=== PATIENT | female | born 1950 | race Two or more races ===

== ENCOUNTER → 2017-05-13 | Outpatient (CLI) | payer MEDICARE, BC ==
--- NOTE | 2017-05-16 09:15 | BD ---
EXAMINATION TYPE: MG DEXA axial skeleton. DATE OF EXAM: 05/13/2017 COMPARISON: NONE CLINICAL HISTORY: 66 YR OLD FEMALE....ICD-10 CODE: Z13.820 OSTEOPOROSIS SCREENING Height: 63.5 Weight: 150 FRAX RISK QUESTIONS: Alcohol (3 or more units per day): NO Family History (Parent hip fracture): YES Glucocorticoids (More than 3mos): NO (Ex: prednisone, prednisolone, methylprednisolone, dexamethasone, and hydrocortisone). History of Fracture in Adulthood: AT AGE 46 Secondary Osteoporosis: NO 1. Type 1 Diabetes: NO 2. Hyperthyroidism: NO 3. Menopause before 45: NO 4. Malnutrition: NO 5. Chronic liver disease: NO Rheumatoid Arthritis: NO Current Tobacco Use: YES 1/2 PAC DAILY RISK FACTORS HISTORY OF: LT FIBULA, AT AGE 46 YRS OLD Family History of Osteoporosis: MOTHER, SISTER, SISTER BROKE HER HIP Active: NO, NOT AT THIS TIME Diet low in dairy products/other sources of calcium: NO Postmenopausal woman: YES AT 54 YRS Lost more than 2 inches in height since high school: YES Hyperparathyroidism: NO Adrenal Insufficiency: NO MEDICATIONS: Prednisone or other steroids: PREDNISONE FOR LUNGS LAST MONTH Additional History: BP MEDS, VIT D, MULTIVITAMIN, FISH OIL EXAM MEASUREMENTS: Bone mineral densitometry was performed using the [employer] System. Bone mineral density as measured about the Lumbar spine is: ----- L1-L4(G/cm2): 1.039 T Score Values are as follows: ----- L1: -1.4 ----- L2: -2.0 ----- L3: -1.4 ----- L4: -0.5 ----- L1-L4: -1.2 Bone mineral density NEW TO [facility] Bone mineral density about the R hip (g/cm2): 0.710 Bone mineral density about the L hip (g/cm2): 0.651 T Score values are as follows: -----R Neck: -2.7 -----L Neck: -2.8 -----R Total: -2.4 -----L Total: -2.8 Bone mineral density has: NEW TO [facility] FRAX%S: THERE IS A 27.4% CHANCE OF A MAJOR OSTEOPOROTIC FX AND A 11.2% FOR HIP FX...PROBABILITY OF FX IN 10 YRS IMPRESSION: Osteoporosis (T Score less than -2.5) with respect to the bilateral hips. There is increased fracture risk and therapy is usually indicated based on age. Re-Screen 1-2 years. NOTE: T-SCORE=SD OF THE YOUNG ADULT MEAN.
--- NOTE | 2017-05-16 12:47 | MM ---
Reason for exam: screening (asymptomatic). History: Patient is postmenopausal and is nulliparous. Physical Findings: A clinical breast exam by your physician is recommended on an annual basis and results should be correlated with mammographic findings. MG 3D Screening Mammo W/Cad Bilateral CC and MLO view(s) were taken. No prior studies available for comparison. The breast tissue is heterogeneously dense. This may lower the sensitivity of mammography. There is no discrete abnormality. ASSESSMENT: Negative, BI-RAD 1 RECOMMENDATION: Routine screening mammogram of both breasts in 1 year.
== END | disposition home or self-care (01) ==
LOC: RADMAMWWP 13:19
PROVIDERS: ATTEND Family Medicine
DX: Z12.31 Encounter for screening mammogram for malignant neoplasm of breast (principal); M81.0 Age-related osteoporosis without current pathological fracture
CPT/HCPCS: 77063; 77067; 77080

== ENCOUNTER → 2017-06-16 | Outpatient (CLI) | payer MEDICARE, BC | END | disposition home or self-care (01) | LOC: LABPAT 17:23 | PROVIDERS: ATTEND Orthopaedic Surgery | DX: Z01.812 Encounter for preprocedural laboratory examination (principal) | CPT/HCPCS: 87070 ==

== ENCOUNTER → 2017-06-29 | Outpatient (CLI) | payer MEDICARE, BC ==
[2017-06-29 11:46] LABS: Basophils % (A) 0 %; Eosinophils # (A) 0.3 k/uL (0-0.7); Eosinophils % (A) 4 %; HCT 43.1 % (34.0-46.0); HGB 14.4 gm/dL (11.4-16.0); Lymphocytes # (A) 2.8 k/uL (1.0-4.8); Lymphocytes % (A) 37 %; MCH 32.3 pg (25.0-35.0); MCHC 33.5 g/dL (31.0-37.0); MCV 96.5 fL (80.0-100.0); Mean Platelet Volume 6.6; Monocytes # (A) 0.3 k/uL (0-1.0); Monocytes % (A) 4 %; Neutrophils % (A) 53 %; Platelet Count 294 k/uL (150-450); RBC 4.47 m/uL (3.80-5.40); RDW 12.7 % (11.5-15.5); WBC 7.5 k/uL (3.8-10.6)
[2017-06-29 11:53] LABS: Partial Thromboplastin Time 24.3 sec (22.0-30.0)
[2017-06-29 12:00] LABS: Albumin 4.1 g/dL (3.5-5.0); Calcium 9.5 mg/dL (8.4-10.2); Potassium 4.8 mmol/L (3.5-5.1); Total Bilirubin 0.7 mg/dL (0.2-1.3); Total Protein 6.5 g/dL (6.3-8.2)
== END | disposition home or self-care (01) ==
LOC: LABWHC1 10:55
PROVIDERS: ATTEND Physician Assistant Medical
DX: Z01.812 Encounter for preprocedural laboratory examination (principal); E78.2 Mixed hyperlipidemia; I10 Essential (primary) hypertension; M25.562 Pain in left knee; Z79.01 Long term (current) use of anticoagulants
CPT/HCPCS: 36415; 80053; 85025; 85610; 85730

== ENCOUNTER 2017-07-18 12:46 | Inpatient (IN) | payer MEDICARE, BC ==
[2017-07-06 15:57] VITALS: BMI 24.7
--- NOTE | 2017-07-17 13:38 | HP ---
HISTORY AND PHYSICAL Keely Kelly is a 67-year-old patient seen with symptomatic left knee osteoarthritis. Treatment options were discussed with her. She elected to proceed with left total knee arthroplasty. Consent regarding the procedure was obtained. Medical clearance was provided by Jyoti Butcher. PAST MEDICAL HISTORY: Hyperlipidemia, hypertension. PAST SURGICAL HISTORY: Noncontributory. MEDICATIONS: Losartan. ALLERGIES: FOSAMAX. SOCIAL HISTORY: Patient smokes half pack cigarettes daily. PHYSICAL EXAMINATION: Evaluation of the left knee range of motion is negative 4/5 to 95 degrees. There is a moderate effusion present. Tenderness medial joint line. Positive medial Raymond's. There is crepitus along the medial and patellofemoral compartments. Range of motion. Pain with patellofemoral compression. Ligaments stable. Hip rotation without pain. Distal neurovascular exam intact. RADIOGRAPHS: Left knee radiographs reveal severe medial moderate patellofemoral compartment osteoarthritis. IMPRESSION: 1. Left knee osteoarthritis. 2. Hypertension. 3. Tobacco use. PLAN: Left total knee arthroplasty. Surgery scheduled for 07/18/2017. MMODL / IJN: [id number] /
[~2017-07-18 12:46] MED LIST: ACETAMINOPHEN TAB 500 MG TAB PO ONE; DEXAMETHASONE SOD PHOSPHATE 10 MG/ML 1 ML VIAL IV ONE; LIDOCAINE 1% 20 ML VIAL (10MG/ML) FOR IV START INTRADERMA PRN; MELOXICAM 7.5 MG TAB PO ONE; MIDAZOLAM 2 MG/2 ML VIAL IV PRN; MORPHINE SULFATE 4 MG/ML SYRINGE IV PRN; ONDANSETRON 4 MG/2 ML VIAL IVP ONE; TRANEXAMIC ACID 1,000 MG in SODIUM CHLORIDE 0.9% 50 ML IVPB ONE; ceFAZolin IN SWFI 2 GM/20 ML SYRINGE IVP ONE
[2017-07-18] MEDS: LACTATED RINGERS 1,000 ML IV SCH ×2 (14:13→21:44)
[2017-07-18] MEDS ORDERED: LIDOCAINE 1% INJ 10MG/ML (20 ML MDV) ONE (16:33)
[2017-07-18] MEDS ORDERED: fentaNYL (PF) 50 MCG/ML 2 ML AMP ONE (16:33)
[2017-07-18] MEDS ORDERED: MIDAZOLAM 2 MG/2 ML VIAL ONE (16:33)
[2017-07-18] MEDS ORDERED: PROPOFOL 10 MG/ML 20 ML VIAL IV ONE (16:33)
[2017-07-18] MEDS ORDERED: ceFAZolin 3,000 MG in SODIUM CHLORIDE 0.9% IRRIGATIO 3,000 ML IRRIGATION ONE (17:02)
[2017-07-18] MEDS: ROPIVACAINE 246.25 MG, EPINEPHrine 0.5 MG, KETOROLAC 30 MG, cloNIDine HCL/PF 80 MCG, WA... MISCELLANE ONE ×10 (17:06→17:59)
[2017-07-18] MEDS ORDERED: ROPIVACAINE 1,100 MG, SODIUM CHLORIDE 0.9% 330 ML MISCELLANE PRN ×2 (18:05)
--- NOTE | 2017-07-18 18:07 | P.ONQ ---
Anesthesiology Proc Note - PNB - Peripheral Nerve Block Performed Left Adductor Canal Infusion Time Out Performed: Yes Procedure Start Time: 14:59 Procedure Stop Time: 15:10 Indication: Acute Post-Operative Pain, Requested by physician Sedation Type: Sedate with meaningful contact maintained Preparation: Sterile Dressing Position: Supine Catheter: Indwelling Needle Types: On-Q Needle Size: 100mm (4") Needle Gauge: 21 Technique: Ultrasound Injectate: 0.5% Ropivacaine (see comment for volume) (ropi .5% 20cc) Blood Aspirated: No Pain Paresthesia on Injection Noted: No Resistance on Injection: Normal Events: Uneventful and Well Tolerated
[2017-07-18] MEDS ORDERED: hydrOXYzine PAMOATE 25 MG CAP PO PRN (18:42)
[2017-07-18] MEDS ORDERED: ONDANSETRON 4 MG/2 ML VIAL IVP PRN (18:42)
[2017-07-18] MEDS ORDERED: NALOXONE 0.4 MG/ML 1 ML VIAL IV PRN (18:42)
[2017-07-18] MEDS ORDERED: HYDROcodone/APAP 7.5-325MG 1 EACH TAB PO PRN ×2 (18:42)
[2017-07-18] MEDS ORDERED: HYDROmorphone 0.5 MG/0.5 ML SYRINGE IVP PRN ×3 (18:42)
--- NOTE | 2017-07-18 18:42 | P.OP ---
Date of Procedure: 07/18/17 Preoperative Diagnosis: Left knee osteoarthritis Postoperative Diagnosis: Left knee osteoarthritis Procedure(s) Performed: Left total knee arthroplasty Implants: 1. Microport evolution MP CS/CR size 4 left cemented femoral component 2. Microport evolution MP size 4 left cemented keeled tibial base 3. Microport evolution MP CS size 4 left 10 mm polyethylene tibial insert 4. Microport advance all polyethylene cemented patella 35 mm Anesthesia: regional (Adductor canal catheter), local, spinal Surgeon: Quentin Olea Garbage Collector Supervisor #1: Juan Manuel Coello Estimated Blood Loss (ml): 50 Pathology: none sent (Bone) Condition: stable Disposition: PACU Indications for Procedure: 67-year-old patient seen with symptomatic left knee osteoarthritis. After having treatment options discussed, she elected to proceed with total knee arthroplasty. Operative Findings: See description of procedure Description of Procedure: Patient was taken to the operative suite after having and adductor canal catheter placed by the department of anesthesia. Patient underwent a spinal anesthetic by the department of anesthesia. Patient was given preoperative IV intake antibiotics and TXA. A well-padded tourniquet was placed about the left lower extremity. The lower extremity was then prepped and draped in the normal sterile orthopedic fashion. The extremity was elevated, a tourniquet was insufflated to 300. A standard anterior incision was made sharply through skin. Dissection was taken down through the subcutaneous soft tissues down to the extensor mechanism. A medial arthrotomy was performed, patella was everted and knee was flexed. There was advanced osteoarthritis noted. A proximal tibial cutting guide was positioned. Proximal tibial cut was made. A distal intramedullary femoral cutting guide was positioned, distal femoral cut made. We placed the appropriate sizing guide and selected the appropriate size. A distal 4-in-1 femoral cutting block was positioned, distal femoral cuts were made. We now placed a trial femoral component into position, along with an appropriate size tibial tray and insert. We now took the knee through range of motion and had full extension good flexion and good overall soft tissue balance noted. The patella was everted and a flush cut made with patellar quad tendon. We templated the patella, appropriate drill holes were made. An appropriate trial patella was positioned, knee was taken through full range of motion with the patella tracking very nicely. The trial patella was removed. Drill holes were made through the femoral component. All trial components were removed after marking off the appropriate rotation of the tibia. Retractors were now positioned along the proximal tibia. An appropriate keel punch was made with the appropriate size tibial guide. At this point appropriate size implants were chosen and opened. The joint was irrigated copiously with pulse lavage mechanical irrigation. The posterior capsule was infiltrated with local analgesic. We mixed antibiotic methylmethacrylate. Once the methyl methacrylate was ready, the tibial component was cemented into place removing any excess methylmethacrylate. The femoral component was cemented into place removing the removing any excess methylmethacrylate. We then inserted the appropriate size polyethylene tibial insert. We made sure that it was locked into position. We took the knee into full extension, and then back in a flexion making sure we had removed any excess methylmethacrylate. The patellar component was then cemented down and secured with clamp. Excess methylmethacrylate removed. We kept the knee in full extension, patellar clamp in position until methylmethacrylate had hardened. Once it had hardened the patellar clamp was removed. The knee was taken through full range of motion. The patella tracked nicely. There was good soft tissue balancing. The tourniquet was now released. Additional hemostasis was achieved via electrocautery. A second gram of TXA was given. The superficial soft tissues were infiltrated with local analgesic. The wound was irrigated with pulse lavage mechanical irrigation. The extensor mechanism was repaired with Vicryl. We checked the repair with range of motion and it was stable. The subcutaneous soft tissues were repaired with Vicryl in layers. The skin was approximated with pernio/Dermabond. Sterile dressings were applied followed by loose web roll and Arturo bandage. The patient was transferred to a bed, and taken to recovery in stable and satisfactory condition. David RAMÍREZ assisted with the procedure.
--- NOTE | 2017-07-18 19:12 | XR ---
Left knee 2 views. History postop. Comparison none. FINDINGS: There is a left total knee prosthesis. Components are in anatomic position. IMPRESSION: No complicating process seen.
[2017-07-18] MEDS ORDERED: SENNOSIDES-DOCUSATE SODIUM 1 EACH TAB PO SCH (21:00)
[2017-07-18] MEDS: traMADol 50 MG TAB PO SCH (22:12)
[2017-07-18] MEDS: ceFAZolin IN SWFI 2 GM/20 ML SYRINGE IVP SCH (23:25)
[2017-07-19 02:11] VITALS: RESP 18
--- NOTE | 2017-07-19 07:22 | P.PN ---
Progress Note - Text 07/19 657am 67-year-old female status post left knee replacement by Dr. Quentin coello. Patient has On-Q pump for postop pain control with the solution running at 8 mL an hour. She has a VAS of 0. Plan to continue On-Q pump infusion
--- NOTE | 2017-07-19 07:43 | CONS ---
CONSULTATION REASON FOR CONSULTATION: Advice regarding hypertension and other multiple medical issues requested by Dr. Olea. HISTORY OF PRESENT ILLNESS: This 67-year-old woman with a past medical history of hypertension, history of DJD, underwent left total knee arthroplasty by Dr. Olea. There is no history of fever, rigors. No history of headache, loss of consciousness or seizures. The patient is taking losartan for hypertension at home. PAST MEDICAL HISTORY: Hypertension, DJD, history of vitamin D deficiency, hyperlipidemia. MEDICATIONS: Medications prior to admission include: 1. Otley-3 fatty acids. 2. Aleve 220 mg p.o. b.i.d. 3. Multivitamins 1 p.o. daily. 4. Cozaar 25 mg daily. 5. Vitamin D3 1000 daily. 6. Vitamin C 500 mg p.o. daily. ALLERGIES: Allergies are BEE POLLEN, POISON PRICE and FOSAMAX. FAMILY HISTORY: No history of heart disease or strokes in the family. SOCIAL HISTORY: History of smoking. No history of alcohol intake. REVIEW OF SYSTEMS: ENT: No diminished hearing or diminished vision. CARDIOVASCULAR SYSTEM: No angina or palpitations. RESPIRATORY SYSTEM: No cough or hemoptysis. GI: No nausea. : No dysuria. NERVOUS SYSTEM: No numbness or weakness. ALLERGY/IMMUNOLOGY: No history of asthma. MUSCULOSKELETAL: As mentioned earlier. HEMATOLOGY/ONCOLOGY: No history of anemia. ENDOCRINE: As mentioned earlier. CONSTITUTIONAL: As mentioned earlier. DERMATOLOGY: Negative. RHEUMATOLOGY: Negative. PSYCHIATRY: As mentioned earlier. PHYSICAL EXAMINATION: Patient is alert, oriented x3. Pulse is 88, blood pressure is 143/63, respirations 16, temperature is normal. HEENT: Conjunctivae normal. Oral mucosa moist. Neck is no jugular venous distention. No carotid bruit. No lymph node enlargement. CARDIOVASCULAR: S1 and S2 muffled. No S3, no S4. RESPIRATORY: Breath sounds diminished at the bases. No rhonchi, no crackles. ABDOMEN: Soft, nontender. No mass palpable. LEGS: Status post left knee arthroplasty. NERVOUS SYSTEM: Higher functions as mentioned earlier. Moves all 4 limbs. No focal motor deficits. LYMPHATICS: No lymphadenopathy of the neck, axillae or groin. SKIN: No ulcer, rash or bleeding. LABS: The previous labs in March are noted. ASSESSMENT: 1. Status post left total knee arthroplasty. 2. Hypertension. 3. History of degenerative joint disease. 4. History of nicotine dependence. RECOMMENDATIONS AND DISCUSSION: This 67-year-old woman presented with multiple medical issues, will monitor the patient closely. Continue the current medications, continue symptomatic treatment. DVT prophylaxis. Incentive spirometry. I would also recommend smoking cessation, Habitrol patch. Resume the home medications. Monitor blood pressure closely. Will follow the patient closely with you. Patient may be asked to follow with Dr. Montes closely after discharge. Thank you Dr. Olea for letting us participate in the care of this patient. MMODL / IJN: [id number] /
[2017-07-19] MEDS: LACTATED RINGERS 1,000 ML IV SCH ×2 (08:00→10:41)
[2017-07-19] MEDS: traMADol 50 MG TAB PO SCH ×2 (08:01→12:11)
[2017-07-19] MEDS: ceFAZolin IN SWFI 2 GM/20 ML SYRINGE IVP SCH (08:01)
[2017-07-19 08:15] LABS: Basophils % (A) 0 %; Eosinophils % (A) 0 %; HGB 13.1 gm/dL (11.4-16.0); Lymphocytes # (A) 2.1 k/uL (1.0-4.8); Lymphocytes % (A) 12 %; MCH 32.9 pg (25.0-35.0); MCHC 33.6 g/dL (31.0-37.0); MCV 97.7 fL (80.0-100.0); Monocytes # (A) 0.8 k/uL (0-1.0); Monocytes % (A) 4 %; Neutrophils # (A) 15.1 k/uL (1.3-7.7); Neutrophils % (A) 83 %; Platelet Count 278 k/uL (150-450); RBC 3.99 m/uL (3.80-5.40); RDW 12.9 % (11.5-15.5); WBC 18.1 k/uL (3.8-10.6)
[2017-07-19] MEDS ORDERED: ENOXAPARIN 30 MG/0.3 ML SYRINGE SQ SCH (09:00)
[2017-07-19] MEDS ORDERED: MELOXICAM 7.5 MG TAB PO SCH (09:00)
[2017-07-19] MEDS ORDERED: CHOLECALCIFEROL 1,000 UNIT TAB PO SCH (09:00)
[2017-07-19] MEDS ORDERED: NICOTINE 14MG/24HR PATCH TRANSDERM SCH (09:00)
[2017-07-19] MEDS ORDERED: LOSARTAN 25 MG TAB PO SCH (09:00)
[2017-07-19] MEDS ORDERED: FAMOTIDINE 20 MG TAB PO SCH (09:00)
[2017-07-19] MEDS ORDERED: MULTIVITAMINS, THERA 1 EACH TAB PO SCH (12:00)
--- NOTE | 2017-07-19 13:59 | P.PN ---
Subjective Progress Note Date: 07/19/17 Principal diagnosis: Status post left total knee arthroplasty Patient seen today resting in her hospital bed, her present at bedside. She is doing very well at this time, she is urinating on her own. She denies any chest pain, shortness of breath, fever chills. Objective - Vital Signs Vital signs: Vital Signs Temp 98.1 F 07/19/17 08:19 Pulse 74 07/19/17 08:19 Resp 18 07/19/17 02:11 BP 131/62 07/19/17 08:19 Pulse Ox 94 L 07/19/17 08:19 Intake & Output 07/18/17 07/19/17 07/19/17 18:59 06:59 18:59 Intake Total 1501 1400 Output Total 50 Balance 1451 1400 Intake: IV 1501 Intake, IV Titration 800 Amount Lactated Ringers 1,000 ml 800 @ 80 mls/hr IV .[id number] CLEMENTINA Rx#:[id number] Oral 600 Output: Estimated Blood Loss 50 Other: Voiding Method Bedside Commode Bedside Commode # Voids 3 - Exam Left lower extremity: Incision is clean, dry, and intact. The prineo tape is in good condition. There is minimal soft tissue swelling and ecchymosis surrounding the medial and lateral aspects of the incision. Calf is soft, no tenderness with palpation. Plantar flexion, dorsiflexion, EHL, FHL are intact. Sensory exam to light touch throughout the extremity is intact, dorsal pedis pulses 2+. - Labs CBC & Chem 7: 07/19/17 07:27 Labs: Abnormal Lab Results - Last 24 Hours (Table) 07/19/17 Range/Units 07:27 WBC 18.1 H (3.8-10.6) k/uL Neutrophils # 15.1 H (1.3-7.7) k/uL Assessment and Plan Plan: Assessment: 1. Postop day #1 status post left total knee arthroplasty Plan: Pain control, continue oral medications Wound care instructions were discussed GI and DVT prophylaxis, we'll discharge home on aspirin 325 mg twice a day Home CPM after discharge Home physical therapy and nursing after discharge Medical recommendations Discharge planning: She will be discharged home today Time with Patient: Less than 30
--- NOTE | 2017-07-19 14:06 | P.DS ---
Providers Date of admission: 07/18/17 12:46 Expected date of discharge: 07/19/17 Attending physician: Quentin Olea Consults: 07/18/17 18:42 Consult Physician Routine Consulting Provider: Alexey Montes Consult Reason/Comments: Medical management Do you want consulting provider notified?: Yes 07/18/17 18:48 Consult Physician Routine Consulting Provider: David Delacruz Consult Reason/Comments: medical management Do you want consulting provider notified?: Yes Primary care physician: Alexey Montes Hospital Course: Date of admission: 07/18/2017 Date of discharge: 07/19/2017 Admission diagnosis: Status post left total knee arthroplasty Discharge diagnosis: Same Attending physician: Dr. Olea Surgical procedures: Left total knee arthroplasty Brief history: Patient is a 67-year-old female with a history of progressive left knee arthritis. At this point patient has failed conservative treatment measures and has opted to proceed with a elective left total knee arthroplasty. Hospital course: Details of patient's surgery can be found in operative report. Patient tolerated the procedure well and was subsequently transported to orthopedic floor. Patient's orthopeidc and medical care was provided daily. Patient had daily laboratory tests performed for evaluation of overall blood counts. Patient had daily physical therapy to include strengthening range of motion as well as education with walker ambulation. Patient had daily CPM usage as part of their physical therapy program. Patient was treated with Lovenox for their postoperative DVT prophylaxis during their inpatient stay. Patient was noted to have a relatively uneventful postoperative course. Patient reported satisfactory pain control with oral pain medications by postoperative day 0. Patient showed satisfactory progress with physical therapy. Patient moved steadily through the program and had no difficulty meeting the goals by postoperative day 1. Given patient's otherwise satisfactory course and having met physical therapy goals, plan is to discharge patient home on postoperative day 1. Discharge condition/disposition: Patient will be discharged home in stable condition. Discharge medications: Instructions are given on resumption of patient's normal daily medications per primary care recommendation, in addition patient will be prescribed [place] 5 mg/325 mg, tramadol 50 mg, Colace 100 mg, aspirin 325 mg . Discharge instructions: 1. Wound care and infection precautions, keep incision dry and covered while showering, no lotions, creams, moisturizers. No soaking, tubs, pools, hottubs. Do not scrub over the incision. 2. Weight-bear as tolerated with walker / cane until follow-up. 3. Ice and elevate when necessary. Do not exceed 20 minutes per hour with ice pack. 4. Utilize compression sleeve until seen at first follow up appointment. 5. Visiting nursing care. 6. Home physical therapy including home CPM. 7. Pain meds and anticoagulants per prescription. 8. Pain medication has potential to cause constipation. Increase oral fluid and fiber intake. Contact primary care provider if you have not had a bowel movement within 48 hours after discharge 9. No anti-inflammatory medication until discussed at first post operative visit, this including Motrin, Aleve, Mobic, Diclofenac. 10. Follow up in office at 2 weeks postop with David Coello PA-C 11. Follow up with your primary care doctor 7-10 days after discharge. 12. Contact [facility] with any questions, . Procedures: Left total knee arthroplasty Patient Condition at Discharge: Good Plan - Discharge Summary Discharge Rx Participant: Yes New Discharge Prescriptions: New Aspirin 325 mg PO BID #60 tab Hydrocodone/Acetaminophen [[place] 5-325] 1 - 2 each PO Q6HR PRN #40 tab PRN Reason: Pain traMADol HCl [Ultram] 50 mg PO Q6H PRN #30 tab PRN Reason: Pain Docusate [Colace] 100 mg PO DAILY #30 capsule No Action Cholecalciferol [Vitamin D3] 1,000 unit PO DAILY Losartan [Cozaar] 25 mg PO DAILY Ascorbic Acid [Vitamin C] 500 mg PO DAILY Saline-3 Fatty Acids/Fish Oil [Fish Oil 1,000 mg Softgel] 1 cap PO DAILY Multivit with Calcium,Iron,Min [Women's Multivitamin] 1 tab PO DAILY Discharge Medication List Ascorbic Acid [Vitamin C] 500 mg PO DAILY 07/06/17 [History] Cholecalciferol [Vitamin D3] 1,000 unit PO DAILY 07/06/17 [History] Losartan [Cozaar] 25 mg PO DAILY 07/06/17 [History] Multivit with Calcium,Iron,Min [Women's Multivitamin] 1 tab PO DAILY 07/06/17 [ History] Saline-3 Fatty Acids/Fish Oil [Fish Oil 1,000 mg Softgel] 1 cap PO DAILY [History] Aspirin 325 mg PO BID #60 tab 07/19/17 [Rx] Docusate [Colace] 100 mg PO DAILY #30 capsule 07/19/17 [Rx] Hydrocodone/Acetaminophen [[place] 5-325] 1 - 2 each PO Q6HR PRN #40 tab 07/19/17 [Rx] traMADol HCl [Ultram] 50 mg PO Q6H PRN #30 tab 07/19/17 [Rx] Follow up Appointment(s)/Referral(s): [facility], [NON-STAFF] - Juan Manuel Coello PAC [PHYSICIAN CRYSTAL FINISHER] - 08/03/17 2:10 pm () Alexey Montes DO [Primary Care Provider] - 07/22/17 2:00 pm (At [facility] [phone] with Ju) Activity/Diet/Wound Care/Special Instructions: Orthopedic Discharge Instructions: 1. Wound care and infection precautions, keep incision dry and covered while showering, no lotions, creams, moisturizers. No soaking, pools, hot tubs. Do not scrub over incision. 2. Weight-bear as tolerated with walker / cane until follow-up. 3. Ice and elevate when necessary. Do not exceed 20 minutes per hour with ice pack. 4. Utilize compression sleeve until seen at first follow up appointment. 5. Visiting nursing care. 6. Home physical therapy including home CPM. 7. Pain meds and anticoagulants per prescription. 8. Pain medication has potential to cause constipation. Increase oral fluid and fiber intake. Contact primary care provider if you have not had a bowel movement within 48 hours after discharge. 9. No anti-inflammatory medication until discussed at first post operative visit, this including Motrin, Aleve, Mobic, Diclofenac. 10. Follow up in office at 2 weeks postop with David Coello PA-C 11. Follow up with your primary care doctor 7-10 days after discharge. 12. Contact [facility] with any questions, . Discharge Disposition: HOME WITH HOME HEALTH SERVICES
[2017-07-19 15:24] VITALS: BP 133/67; PULSE 70; TEMP 98
[2017-07-19 15:42] LABS: Appearance,Urine Clear (Clear); Bilirubin,Urine Negative (Negative); Blood,Urine Negative (Negative); Color,Urine Yellow; Glucose,Urine (UA) Negative (Negative); Ketones,Urine Negative (Negative); Leukocyte Esterase,Urine Negative (Negative); Nitrite,Urine Negative (Negative); PH, Urine 5.5 (5.0-8.0); Protein,Urine Negative (Negative); Urobilinogen,Urine <2.0 mg/dL (<2.0)
--- NOTE | 2017-07-19 17:32 | PN ---
PROGRESS NOTE DATE OF SERVICE: 07/19/2017. INTERVAL HISTORY: This 67-year-old woman who was admitted after left total knee arthroplasty, is being closely monitored. No chest pain. No palpitations. No fever. PHYSICAL EXAM: Alert and oriented x3, pulse 74, blood pressure 130/60, respirations 18, temp 98.4, pulse ox 94% room air. HEENT: Conjunctivae normal. NECK: No JVD. CARDIOVASCULAR: S1 and S2 muffled. LUNGS: Breath sounds diminished at the bases. No rhonchi no crackles. ABDOMEN: Soft. LEGS: Status post knee arthroplasty. NERVOUS SYSTEM: No focal deficits. LABS: WBC 18.1. UA is unremarkable. ASSESSMENT: 1. Status post left total knee arthroplasty. 2. Increased WBC, possibly reactive. 3. Hypertension. 4. History of degenerative joint disease. 5. History of nicotine dependence. RECOMMENDATIONS: Recommend to continue current management and symptomatic treatment. Incentive spirometry. UA is unremarkable. Continue the rest of medications. Further recommendations to follow. MMODL / IJN: [id number] /
== END 2017-07-19 17:27 | disposition home health service (06) | DRG 470 ==
LOC: 2ORMAIN 12:46 → 3SUR 18:32
PROVIDERS: ADMIT Orthopaedic Surgery; ATTEND Orthopaedic Surgery
PROC: 0SRD0J9 Replacement of Left Knee Joint with Synthetic Substitute, Cemented, Open Approach (ICD-10-PCS; principal; 2017-07-18 15:25)
DX: M17.12 Unilateral primary osteoarthritis, left knee (principal); F17.210 Nicotine dependence, cigarettes, uncomplicated; I10 Essential (primary) hypertension; E78.5 Hyperlipidemia, unspecified; E55.9 Vitamin D deficiency, unspecified; Z79.899 Other long term (current) drug therapy; Z88.8 Allergy status to other drugs, medicaments and biological substances; Z91.030 Bee allergy status; Z91.09 Other allergy status, other than to drugs and biological substances
CPT/HCPCS: 81003; 85025; 88300

== ENCOUNTER 2017-09-19 07:03 | Day surgery (SDC) | payer MEDICARE, BC ==
[2017-09-13 11:53] VITALS: BMI 24.6
--- NOTE | 2017-09-18 13:34 | HP ---
HISTORY AND PHYSICAL Surgery is scheduled for 09/19/2017. Keely Kelly is a 67-year-old patient seen with left knee stiffness/adhesions after previously having undergone total knee arthroplasty. We discussed options. She elected to proceed with manipulation under anesthesia left knee with steroid injection. Consent was obtained. PAST MEDICAL HISTORY: Hypertension. PAST SURGICAL HISTORY: Left total knee arthroplasty. DAILY MEDICATIONS: Losartan, vitamins. ALLERGIES: FOSAMAX. SOCIAL HISTORY: Patient currently smokes half-pack cigarettes daily. PHYSICAL EXAMINATION: Evaluation left knee shows well-healed anterior incision. Range of motion is -17 to 75. Ligaments are stable. There is some weakness with quadriceps strength. Hip rotation without pain. Distal neurovascular exam intact. RADIOGRAPHS: Radiographs of the left knee revealed a stable appearing total knee arthroplasty. IMPRESSION: 1. Left knee adhesions/stiffness. 2. Left total knee arthroplasty. 3. Hyperlipidemia. 4. Tobacco use. PLAN: Manipulation under anesthesia left knee with steroid injection. MMODL / IJN: [id number] /
[~2017-09-19 07:03] MED LIST changes: -ACETAMINOPHEN TAB 500 MG TAB PO ONE; -DEXAMETHASONE SOD PHOSPHATE 10 MG/ML 1 ML VIAL IV ONE; +LACTATED RINGERS 1,000 ML IV SCH; -MELOXICAM 7.5 MG TAB PO ONE; -MORPHINE SULFATE 4 MG/ML SYRINGE IV PRN; -ONDANSETRON 4 MG/2 ML VIAL IVP ONE; -TRANEXAMIC ACID 1,000 MG in SODIUM CHLORIDE 0.9% 50 ML IVPB ONE; +fentaNYL (PF) 50 MCG/ML 2 ML AMP IV PRN
[2017-09-19 07:37] VITALS: TEMP 97.9
[2017-09-19] MEDS ORDERED: PROPOFOL 10 MG/ML 20 ML VIAL IV ONE (09:04)
[2017-09-19] MEDS ORDERED: LIDOCAINE 1% INJ 10MG/ML (20 ML MDV) ONE (09:04)
[2017-09-19] MEDS ORDERED: fentaNYL (PF) 50 MCG/ML 2 ML AMP ONE (09:04)
[2017-09-19] MEDS ORDERED: methylPREDNISolone ACETATE 80 MG/ML 1 ML VIAL INJ ONE (09:14)
[2017-09-19] MEDS ORDERED: BUPIVACAIN-EPI 0.25%-1:200,000 30 ML VIAL SQ ONE (09:14)
[2017-09-19] MEDS ORDERED: ONDANSETRON 4 MG/2 ML VIAL IVP ONE (09:15)
--- NOTE | 2017-09-19 09:26 | P.OP ---
Date of Procedure: 09/19/17 Preoperative Diagnosis: Left knee adhesions/stiffness status post total knee arthroplasty Postoperative Diagnosis: Left knee adhesions/stiffness status post total knee arthroplasty Procedure(s) Performed: Manipulation under anesthesia left knee with steroid injection Anesthesia: MARIN Surgeon: Quentin Olea Estimated Blood Loss (ml): 0 Pathology: none sent Condition: stable Disposition: PACU Indications for Procedure: 67-year-old patient seen with persistent left knee adhesions after previously undergoing a total knee arthroplasty. I recommended manipulation under anesthesia with steroid injection. The patient was agreeable and consent was obtained. Operative Findings: see description of procedure Description of Procedure: The patient was taken to a monitored anesthesia area. The patient underwent a general anesthetic by the department of anesthesia. Patient received IV antibiotics. A manipulation of the left knee was now performed achieving full extension and 125 of flexion. There was some audible tearing of the adhesions with that initial range of motion. The knee was again taken through full range of motion with good stability and good range of motion. The superior lateral aspect of the left knee was now sterilely prepped and draped and then a solution of 1 mL Depo-Medrol and 3 mL quarter percent plain Marcaine were injected into the super patellar compartment. I again took the knee through a full range of motion. I now applied a sterile Band-Aid. The patient awakened having entire procedure well.
[2017-09-19] MEDS: HYDROmorphone 0.5 MG/0.5 ML SYRINGE IVP PRN ×4 (09:27→09:49)
[2017-09-19] MEDS ORDERED: KETOROLAC 30 MG/ML 1 ML VIAL IVP ONE (09:33)
[2017-09-19 09:38] VITALS: RESP 16
[2017-09-19 10:36] VITALS: BP 129/58; PULSE 69
== END 2017-09-19 11:21 | disposition home or self-care (01) ==
LOC: OR 07:03
PROVIDERS: ATTEND Orthopaedic Surgery
DX: M25.662 Stiffness of left knee, not elsewhere classified (principal); M23.8X2 Other internal derangements of left knee; I10 Essential (primary) hypertension; E78.5 Hyperlipidemia, unspecified; M19.90 Unspecified osteoarthritis, unspecified site; Z88.8 Allergy status to other drugs, medicaments and biological substances; Z96.652 Presence of left artificial knee joint; Z79.891 Long term (current) use of opiate analgesic; Z79.899 Other long term (current) drug therapy; Z87.891 Personal history of nicotine dependence
CPT/HCPCS: 27570; 20610; J1040; J2405; J2001; J3010; J1885; J2704; J1170

== ENCOUNTER → 2018-01-06 | Outpatient (CLI) | payer MEDICARE, BC ==
--- NOTE | 2018-01-06 13:09 | XR ---
EXAMINATION TYPE: XR lumbosacral spine min 4V DATE OF EXAM: 01/06/2018 CLINICAL HISTORY: pain COMPARISON: NONE TECHNIQUE: Frontal, lateral, and oblique images of the lumbar spine are obtained. FINDINGS: There are 5 lumbar type vertebral bodies identified. The lumbar spine shows satisfactory alignment without evidence of acute fracture or dislocation. Vertebral body heights are within normal limits. Moderate multilevel degenerative disc space narrowing. Moderate to severe facet joint arthro davida. Grade 1 anterolisthesis L4 on L5 measuring 3.2 mm. The overlying soft tissue appears unremar kable. IMPRESSION: Degenerative changes with grade 1 anterolisthesis L4 on L5.
== END | disposition home or self-care (01) ==
LOC: RADXRYALE 11:13
PROVIDERS: ATTEND Physician Assistant Medical
DX: M43.16 Spondylolisthesis, lumbar region (principal); M47.816 Spondylosis without myelopathy or radiculopathy, lumbar region
CPT/HCPCS: 72110

== ENCOUNTER → 2018-01-27 | Outpatient (CLI) | payer MEDICARE, BC ==
--- NOTE | 2018-01-27 08:26 | MR ---
EXAMINATION TYPE: MR lumbar spine wo con DATE OF EXAM: 01/27/2018 COMPARISON: Lumbar spine x-ray January 16, 2018 HISTORY: M51.36 - Sciatica Left Side / Disc Deg Per order. TECHNIQUE: Multiplanar, multisequence imaging of the lumbar spine is performed without IV contrast. FINDINGS: Sagittal images of the lumbar spine show vertebral body heights to appear satisfactory. The re is subtle grade 1 anterolisthesis of L4 on L5. Multilevel disc desiccation is present. There is mi ld disc space narrowing L4-L5 level. Note is made of moderate to severe disc space narrowing with mod erate anterior spurring T11-T12 level. No large posterior disc herniations are seen on sagittal image s. The conus medullaris is slightly low in position ending superior L2 level. No abnormal signal is noted. No suspicious clumping of lumbosacral nerve roots is seen. The bone marrow signal intensity is within normal limits. No significant spurring is identified. Axial images show the T12-L1, L1-L2, and L2-L3 levels all to appear within normal limits. Axial images at the L3-L4 level show mild facet degenerative changes and ligament flavum hypertrophy with mild broad disc bulge. Spinal canal is preserved. Bilateral neural foramina are patent. Axial images at L4-L5 level show moderate facet degenerative changes and ligamentum flavum hypertroph y. There is spondylolisthesis and broad-based posterior disc protrusion minimally effacing anterior t hecal sac. There is mild to moderate left greater than right bilateral anterior inferior neural melissa inal narrowing noted. Axial images at the L5-S1 level show mild/moderate facet degenerative changes bilaterally. There is c entral disc protrusion but spinal canal is preserved. Bilateral neural foramina are patent. No suspicious incidental retroperitoneal findings are seen. IMPRESSION: Multilevel degenerative changes in the mid to lower lumbar spine as detailed above. Subtl e spondylolisthesis L4-L5 level is seen.
== END | disposition home or self-care (01) ==
LOC: RADMRIMAIN 07:13
PROVIDERS: ATTEND Family Medicine
DX: M48.061 Spinal stenosis, lumbar region without neurogenic claudication (principal); M99.73 Connective tissue and disc stenosis of intervertebral foramina of lumbar region; M51.27 Other intervertebral disc displacement, lumbosacral region; M43.16 Spondylolisthesis, lumbar region; M47.817 Spondylosis without myelopathy or radiculopathy, lumbosacral region
CPT/HCPCS: 72148

== ENCOUNTER → 2018-06-01 | Outpatient (CLI) | payer MEDICARE, BC ==
--- NOTE | 2018-06-02 11:14 | MM ---
Reason for exam: screening (asymptomatic). Last mammogram was performed 1 year and 1 month ago. History: Patient is postmenopausal and is nulliparous. Physical Findings: A clinical breast exam by your physician is recommended on an annual basis and results should be correlated with mammographic findings. MG 3D Screening Mammo W/Cad Bilateral CC and MLO view(s) were taken. Prior study comparison: May 13, 2017, bilateral MG 3d screening mammo w/cad. The breast tissue is heterogeneously dense. This may lower the sensitivity of mammography. No significant changes when compared with prior studies. ASSESSMENT: Benign, BI-RAD 2 RECOMMENDATION: Routine screening mammogram of both breasts in 1 year.
== END | disposition home or self-care (01) ==
LOC: RADMAMWWP 10:46
PROVIDERS: ATTEND Family Medicine
DX: Z12.31 Encounter for screening mammogram for malignant neoplasm of breast (principal)
CPT/HCPCS: 77063; 77067

== ENCOUNTER → 2018-07-26 | Outpatient (CLI) | payer MEDICARE, BC ==
--- NOTE | 2018-07-27 17:08 | BD ---
EXAMINATION TYPE: Axial Bone Density DATE OF EXAM: 07/26/2018 COMPARISON: NONE CLINICAL HISTORY: Height: 5 FT 3 1/2 IN Weight: 158 FRAX RISK QUESTIONS: History of Fracture in Adulthood: YES Secondary Osteoporosis: RISK FACTORS HISTORY OF: Family History of Osteoporosis: YES Active: NO Postmenopausal woman: AGE 54 Lost more than 2 inches in height since high school: YES MEDICATIONS: Thyroid Medications: YES Which medication: LEVOTHYROXINE How Lon MONTHS Additional Medications: NAPROXAN, VIT C, MULTI, VIT D3, FISH OIL, LOSARTIN, LEVOTHYROXINE, Additional History: EXAM MEASUREMENTS: Bone mineral densitometry was performed using the [employer] System. Bone mineral density as measured about the Lumbar spine is: ----- L1-L4(G/cm2): 1.008 T Score Values are as follows: ----- L2: -1.9 ----- L3: -1.7 ----- L4: -0.9 ----- L1-L4: -1.4 Bone mineral density has: DECREASED -2.7 % since study of: 2017 Bone mineral density about the R hip (g/cm2): 0.660 Bone mineral density about the L hip (g/cm2): 0.657 T Score values are as follows: -----R Neck: -2.7 -----L Neck: -2.7 -----R Total: -2.5 -----L Total: -3.0 Bone mineral density has: DECREASED -3.1 % since study of: 2017 IMPRESSION: Osteoporosis (T Score less than -2.5). There is increased fracture risk and therapy is usually indicated based on age. Re-Screen 1-2 years. NOTE: T-SCORE=SD OF THE YOUNG ADULT MEAN.
== END | disposition home or self-care (01) ==
LOC: RADBDWWP 15:04
PROVIDERS: ATTEND Family Medicine
DX: M81.0 Age-related osteoporosis without current pathological fracture (principal); F17.201 Nicotine dependence, unspecified, in remission
CPT/HCPCS: 77080

== ENCOUNTER → 2019-08-20 | Outpatient (CLI) | payer MEDICARE, BC ==
--- NOTE | 2019-08-20 11:28 | BD ---
EXAMINATION TYPE: Axial Bone Density DATE OF EXAM: 08/20/2019 COMPARISON: NONE CLINICAL HISTORY: Nuclear Medicine Study in the last 2 weeks: NO Barium Study in the last week: NO : NO Height: 5 FT 4 IN Weight: 164 FRAX RISK QUESTIONS: Alcohol (3 or more units per day): NO Family History (Parent hip fracture): NO Glucocorticoids (More than 3mos): NO (Ex: prednisone, prednisolone, methylprednisolone, dexamethasone, and hydrocortisone). History of Fracture in Adulthood: YES Secondary Osteoporosis: 1. Type 1 Diabetes: NO 2. Hyperthyroidism: NO 3. Menopause before 45: NO 4. Malnutrition: NO 5. Chronic liver disease: NO Rheumatoid Arthritis: NO Current Tobacco Use: NO QUIT 2 YEARS AGO RISK FACTORS HISTORY OF: Family History of Osteoporosis: YES Active: YES Postmenopausal woman: AFTER AGE 50 MEDICATIONS: Thyroid Medications: YES Which medication: LEVOTHYROXINE How Long: ONE MONTH Osteoporosis Medications: YES Which medication: RISEDRONATE How Lon YEAR Additional Medications: KOZAR, LOSARTAN, FISH OIL, VIT D3, , RISEDRONATE , OXYBUTYNIN, PRAVASTATIN, L EVOTHYROXINE Additional History: EXAM MEASUREMENTS: Bone mineral densitometry was performed using the [employer] System. Bone mineral density as measured about the Lumbar spine is: ----- L1-L4(G/cm2): 1.050 T Score Values are as follows: ----- L2: -1.5 ----- L3: -1.3 ----- L4: -0.7 ----- L1-L4: -1.1 Bone mineral density has: INCREASED 3.5 % since study of: 2018 Bone mineral density about the R hip (g/cm2): 0.706 Bone mineral density about the L hip (g/cm2): 0.703 T Score values are as follows: -----R Neck: -2.4 -----L Neck: -2.4 -----R Total: -2.6 -----L Total: -2.4 Bone mineral density has: INCREASED 5.6 % since study of: 2019 IMPRESSION: Osteoporosis (T Score less than -2.5) process overall in the Right hip. Bone density noted increased or improved from prior. There remains increased fracture risk and therapy is usually indicated based on age. Re-Screen 1-2 years. NOTE: T-SCORE=SD OF THE YOUNG ADULT MEAN.
== END | disposition home or self-care (01) ==
LOC: RADBDWWP 09:41
PROVIDERS: ATTEND Family Medicine
DX: M81.0 Age-related osteoporosis without current pathological fracture (principal)
CPT/HCPCS: 77080

== ENCOUNTER → 2019-09-10 | Outpatient (CLI) | payer MEDICARE, BC ==
--- NOTE | 2019-09-12 11:07 | MM ---
Reason for exam: screening (asymptomatic). Last mammogram was performed 1 year and 3 months ago. History: Patient is postmenopausal and is nulliparous. Physical Findings: A clinical breast exam by your physician is recommended on an annual basis and results should be correlated with mammographic findings. MG 3D Screening Mammo W/Cad Bilateral CC and MLO view(s) were taken. Prior study comparison: June 01, 2018, bilateral MG 3d screening mammo w/cad. May 13, 2017, bilateral MG 3d screening mammo w/cad. The breast tissue is heterogeneously dense. This may lower the sensitivity of mammography. No significant changes when compared with prior studies. ASSESSMENT: Benign, BI-RAD 2 RECOMMENDATION: Routine screening mammogram of both breasts in 1 year.
== END | disposition home or self-care (01) ==
LOC: RADMAMWWP 13:11
PROVIDERS: ATTEND Family Medicine
DX: Z12.31 Encounter for screening mammogram for malignant neoplasm of breast (principal)
CPT/HCPCS: 77063; 77067

== ENCOUNTER → 2019-11-01 | Outpatient (CLI) | payer MEDICARE, BC ==
--- NOTE | 2019-11-02 09:55 | US ---
EXAMINATION TYPE: US thyroid st tissue head/neck DATE OF EXAM: 11/01/2019 COMPARISON: NONE CLINICAL HISTORY: 69-year-old female E03.9 Hypothyrodism. On thyroid meds. TECHNIQUE: Multiple sonographic images of the thyroid gland are obtained. FINDINGS: GLAND SIZE: Right Lobe: 4.5 x 1.9 x 2.4 cm Overall Parenchyma: heterogenous Left Lobe: 3.0 x 1.7 x 1.9 cm cm Overall Parenchyma: heterogeneous Isthmus Thickness: 0.3 cm Diffuse glandular hyperemia. NODULES RIGHT: # of nodules measured on right: 2 1. 1.6 X 1.5 x 0.9 cm mixed , primarily solid nodule at the anterior midpole with well-defined dustin ins. This nodule is wider than tall and shows intranodular vascularity. Prior size: No prior 2. 0.8 X 0.8 x 0.9 cm isoechoic nodule at the posterior midpole with well-defined margins. This nod ule is taller than wide and shows intranodular vascularity. Prior size: No prior LEFT: # of nodules measured on left: 0 ISTHMUS: # of nodules measured in the isthmus: 0 Bilateral neck scanned, no evidence of lymphadenopathy. IMPRESSION: 1. Heterogeneous glandular parenchyma with hyperemia. Correlate to exclude diffuse thyroiditis. 2. A mixed, primarily solid nodule anteriorly right midpole measuring 1.6 cm and a solid nodule poste rior right mid pole measuring 9 mm. The decision to biopsy the larger nodule should be made on a clin ical basis.
== END | disposition home or self-care (01) ==
LOC: RADUSWWP 16:45
PROVIDERS: ATTEND Family Medicine
DX: E04.1 Nontoxic single thyroid nodule (principal); R68.89 Other general symptoms and signs; E03.9 Hypothyroidism, unspecified
CPT/HCPCS: 76536

== ENCOUNTER 2019-11-29 12:26 | Day surgery (SDC) | payer MEDICARE, BC ==
[2019-11-29 13:41] VITALS: TEMP 98.2
[2019-11-29 14:37] VITALS: BP 124/60; PULSE 78; RESP 16
--- NOTE | 2019-11-29 14:38 | US ---
ULTRASOUND GUIDED FNA THYROID BIOPSY: CLINICAL HISTORY: Right thyroid nodule FINDINGS: The procedure was explained to the patient. The risks, complications, benefits and alternatives were discussed and any questions were answered. Informed consent was obtained. Patient was placed supin e on the ultrasound table and prepped and draped in the usual sterile fashion. Utilizing a 25 gauge needle, five passes were made into the requested right thyroid nodule. Patient was stable throughout the procedure. Pathology is pending. All elements of maximal barrier technique were utilized. IMPRESSION: 1. Successful ultrasound guided FNA thyroid biopsy.
== END 2019-11-29 14:30 | disposition home or self-care (01) ==
LOC: RADPROMAIN 12:26
PROVIDERS: ATTEND Family Medicine
DX: E04.1 Nontoxic single thyroid nodule (principal)
CPT/HCPCS: 10005; 88173; 88305

== ENCOUNTER → 2020-09-11 | Outpatient (CLI) | payer MEDICARE, BC ==
--- NOTE | 2020-09-11 14:20 | BD ---
EXAMINATION TYPE: Axial Bone Density DATE OF EXAM: 09/11/2020 COMPARISON: 08.20.2019 CLINICAL HISTORY: 70 YR OLD FEMALE.....ICD-10 CODE: Z13.820 OSTEOPOROSIS SCREENING Height: 63.3 Weight: 157 FRAX RISK QUESTIONS: Family History (Parent hip fracture): YES Current Tobacco Use: QUIT 3 YRS AGO, RISK FACTORS HISTORY OF: Family History of Osteoporosis: YES, MOTHER AND BOTH SISTERS, WITH BROKEN HIPS Postmenopausal woman: YES, IN HER EARLY 50s Hyperparathyroidism: NO Adrenal Insufficiency: NO MEDICATIONS: Prednisone or other steroids: IN THE PASTS WITH NEED ONLY Thyroid Medications: YES, SYNTHROID, FOR ABOUT 3 YRS Osteoporosis Medications: RISEDRONATE, WEEKLY, FOSAMAX IN THE PAST, 3 YRS Additional Medications: BP MEDS, STATIN FOR CHOLESTEROL, VIT D, AND C, ALIVE DAILY SENIOR Additional History: HYPERTENSION, CHOLESTEROL, OSTEOPOROSIS, ARTHRITIS, LT TKR, DIET CONTROLLED DIABE TIC EXAM MEASUREMENTS: Bone mineral densitometry was performed using the [employer] System. Bone mineral density as measured about the Lumbar spine is: ----- L1-L4(G/cm2): 1.072 T Score Values are as follows: ----- L1: -1.3 ----- L2: -1.3 ----- L3: -1.1 ----- L4: -0.2 ----- L1-L4: -0.9 Bone mineral density has: Increased 3.1% since study of: 08.20.2019 Bone mineral density about the R hip (g/cm2): 0.717 Bone mineral density about the L hip (g/cm2): 0.683 T Score values are as follows: -----R Neck: -2.1 -----L Neck: -2.6 -----R Total: -2.3 -----L Total: -2.6 Bone mineral density has: Increased 0.6% since study of: 08.20.2019 FRAX%s: THERE IS A 24.9% CHANCE FOR A MAJOR OSTEOPOROTIC FX AND A 7.7% FOR HIP......PROBABILITY F OR FX IN 10 YRS TIME IMPRESSION: Osteoporosis. NOTE: T-SCORE=SD OF THE YOUNG ADULT MEAN.
--- NOTE | 2020-09-12 12:34 | MM ---
Reason for exam: screening (asymptomatic). Last mammogram was performed 1 year ago. History: Patient is postmenopausal and is nulliparous. Took hormonal contraceptives for 2 years. Physical Findings: A clinical breast exam by your physician is recommended on an annual basis and results should be correlated with mammographic findings. MG 3D Screening Mammo W/Cad Bilateral CC and MLO view(s) were taken. Prior study comparison: September 10, 2019, bilateral MG 3d screening mammo w/cad. June 01, 2018, bilateral MG 3d screening mammo w/cad. The breast tissue is heterogeneously dense. This may lower the sensitivity of mammography. ASSESSMENT: Negative, BI-RAD 1 RECOMMENDATION: Routine screening mammogram of both breasts in 1 year.
== END | disposition home or self-care (01) ==
LOC: RADMAMWWP 11:11
PROVIDERS: ATTEND Family Medicine
DX: Z12.31 Encounter for screening mammogram for malignant neoplasm of breast (principal); Z13.820 Encounter for screening for osteoporosis; M81.0 Age-related osteoporosis without current pathological fracture
CPT/HCPCS: 77063; 77067; 77080

== ENCOUNTER → 2021-12-04 | Outpatient (CLI) | payer MEDICARE, BC ==
--- NOTE | 2021-12-04 12:09 | XR ---
EXAMINATION TYPE: XR lumbosacral spine min 4V DATE OF EXAM: 12/04/2021 COMPARISON: 01/06/2018 HISTORY: Hip pain and low back pain TECHNIQUE: 5 view lumbar spine FINDINGS: There is a minimal grade 1 spondylolisthesis of L4 anterior on L5. Vertebral body heights a re preserved. Posterior disc space narrowing is present L4-5, L3-4 and to a mild degree L1-2 and L2-3 . No spondylolytic defects are evident. Facet degenerative changes are in the lower lumbar spine. There are 5 lumbar-type vertebral bodies. The pedicles are intact. Vascular calcifications within the aorta. AP diameter is 3.4 cm. IMPRESSION: 1. Degenerative disc changes. 2. Minimal grade 1 spondylolisthesis of L4 anteriorly on L5. 3. Fusiform prominence distal abdominal aorta with an AP diameter of 3.4 cm.
--- NOTE | 2021-12-04 12:12 | XR ---
EXAMINATION TYPE: XR Hip Bilateral Complete DATE OF EXAM: 12/04/2021 COMPARISON: None HISTORY: Increasing low back pain and bilateral hip pain TECHNIQUE: Two-view bilateral hips FINDINGS: Femoral heads articular with the acetabulum. Mild joint space narrowing of the right hip is evident. Mild narrowing of the left hip joint space is present. No acute fracture or dislocation is evident. IMPRESSION: 1. Mild bilateral hip joint space narrowing.
== END | disposition home or self-care (01) ==
LOC: RADXRYALE 09:13
PROVIDERS: ATTEND Family Medicine
DX: M25.551 Pain in right hip (principal); M25.552 Pain in left hip; M54.50 Low back pain, unspecified
CPT/HCPCS: 72110; 73521

== ENCOUNTER → 2021-12-17 | Outpatient (CLI) | payer MEDICARE, BC ==
--- NOTE | 2021-12-17 15:55 | BD ---
EXAMINATION TYPE: Axial Bone Density DATE OF EXAM: 12/17/2021 COMPARISON: 09.11.2020 prior report....TRENDED TO 05.13.2017 STUDY CLINICAL HISTORY: 71 years year old Female. ICD-10 CODE: M81.0 age related osteoporosis Height: 63 Weight: 160 FRAX RISK QUESTIONS: Family History (Parent hip fracture): YES Glucocorticoids (More than 3mos): YES (Ex: prednisone, prednisolone, methylprednisolone, dexamethasone, and hydrocortisone). History of Fracture in Adulthood: YES Current Tobacco Use: QUITTING ON AND OFF, YES RISK FACTORS HISTORY OF: FX LT TIB FIB, Family History of Osteoporosis: YES, WITH HIP FX Postmenopausal woman: YES, 52 YS OLD Hyperparathyroidism: NO Adrenal Insufficiency: NO MEDICATIONS: Prednisone or other steroids: ON AND OFF PAIN AND ILLNESS Thyroid Medications: YES, FOR 20 YRS Osteoporosis Medications: YES, FOR 5 YRS Additional Medications: BP MEDS, STATIN FOR CHOLESTEROL, HX OF SMOKING, ON AND OFF QUITTING, VIT D, M ULTIVITAMIN , Additional History: HYPERTENSION, CHOLESTEROL, ARTHRITIS, LT TKR, OSTEOPOROSIS, EXAM MEASUREMENTS: Bone mineral densitometry was performed using the [employer] System. Bone mineral density as measured about the Lumbar spine is: ----- L1-L4(G/cm2): 1.107 T Score Values are as follows: ----- L1: -1.0 ----- L2: -1.2 ----- L3: -0.9 ----- L4: 0.1 ----- L1-L4: -0.6 Bone mineral density has: Increased 6.5% since study of: 05.13.2017 Bone mineral density about the R hip (g/cm2): 0.729 Bone mineral density about the L hip (g/cm2): 0.697 T Score values are as follows: -----R Neck: -2.0 -----L Neck: -2.7 -----R Total: -2.2 -----L Total: -2.5 Bone mineral density has: Increased 4.9% since study of: 05.13.2017 FRAX%s: The graph provided illustrates a 40.4%.chance for a major osteoporotic fx and a 19.7% chance for the hips probability for fx in 10 years time. IMPRESSION: Osteoporosis (T Score less than -2.5). There is increased fracture risk and therapy is usually indicated based on age. Re-Screen 1-2 years. NOTE: T-SCORE=SD OF THE YOUNG ADULT MEAN.
--- NOTE | 2021-12-18 09:15 | MM ---
Reason for Exam: Screening (asymptomatic). Last mammogram was performed 1 year(s) and 3 month(s) ago. Patient History: Menarche at age 13. Patient has no children. Postmenopausal. Patient used Hormonal Contraceptives for 2 years. Risk Values: Anjana 5 year model risk: 1.9%. NCI Lifetime model risk: 5.6%. Prior Study Comparison: 06/01/2018 Bilateral Screening Mammogram, [facility]. 09/10/2019 Bilateral Screening Mammogram, [facility]. 09/11/2020 Bilateral Screening Mammogram, [facility]. Tissue Density: The breast tissue is heterogeneously dense. This may lower the sensitivity of mammography. Findings: Analyzed By CAD. Asymmetric density medial right cc view remains unchanged. Benign oil cyst calcification on the right. There is no suspicious group of microcalcifications or new suspicious mass in either breast. Overall Assessment: Benign, BI-RAD 2 Management: Screening Mammogram of both breasts in 1 year. 1. Patient should continue monthly self breast exams. 2. A clinical breast exam by your physician is recommended on an annual basis. 3. This exam should not preclude additional follow-up of suspicious palpable abnormalities. Electronically signed and approved by: Eleanor Quintanilla M.D. Radiologist
== END | disposition home or self-care (01) ==
LOC: RADMAMWWP 13:39
PROVIDERS: ATTEND Family Medicine
DX: Z12.31 Encounter for screening mammogram for malignant neoplasm of breast (principal); M81.0 Age-related osteoporosis without current pathological fracture
CPT/HCPCS: 77063; 77067; 77080

== ENCOUNTER → 2023-01-31 | Outpatient (CLI) | payer MEDICARE, BC ==
--- NOTE | 2023-01-31 12:23 | BD ---
EXAMINATION TYPE: Axial Bone Density DATE OF EXAM: 01/31/2023 CLINICAL HISTORY: 72 years old Female. ICD-10 CODE: M81.0, Z79.899, Height: 63 Weight: 157.6 FRAX RISK QUESTIONS: Alcohol (3 or more units per day): no Family History (Parent hip fracture): no Glucocorticoids (More than 3mos): no (Ex: prednisone, prednisolone, methylprednisolone, dexamethasone, and hydrocortisone). History of Fracture in Adulthood: yes Secondary Osteoporosis: 1. Type 1 Diabetes: no 2. Hyperthyroidism: no 3. Menopause before 45: no 4. Malnutrition: no 5. Chronic liver disease: no Rheumatoid Arthritis: no Current Tobacco Use: no RISK FACTORS HISTORY OF: Surgery to Spine/Hip(right/left)/Wrist (right/left): no MEDICATIONS: Thyroid Medications: thyroid Which medication: How Lon years Osteoporosis Medications: risedronate How Lon years Additional History: EXAM MEASUREMENTS: Bone mineral densitometry was performed using the [employer] System. Bone mineral density as measured about the Lumbar spine is: ----- L1-L4(G/cm2): 1.080 T Score Values are as follows: ----- L1: -1.3 ----- L2: -1.6 ----- L3: -0.8 ----- L4: -0.2 ----- L1-L4: -0.8 Z Score Values are as follows: ----- L1: 0.2 ----- L2: -0.1 ----- L3: 0.7 ----- L4: 1.3 ----- L1-L4: 0.6 Bone mineral density has: decreased -2.4 % since study of: 12.17.2021 Bone mineral density about the R hip (g/cm2): 0.716 Bone mineral density about the L hip (g/cm2): 0.736 T Score values are as follows: -----R Neck: -2.5 -----L Neck: -2.3 -----R Total: -2.3 -----L Total: -2.2 Z Score values are as follows: -----R Neck: -0.9 -----L Neck: -0.7 -----R Total: -0.9 -----L Total: -0.8 Bone mineral density has: increased 1.8 % since study of: 12.17.2021 FRAX%s: The graph provided illustrates a 23.7% chance for a major osteoporotic fx and a 6.4% chance f or the hips probability for fx in 10 years time. IMPRESSION: Osteoporosis (T Score less than -2.5). There is increased fracture risk and therapy is usually indicated based on age. Re-Screen 1-2 years. NOTE: T-SCORE=SD OF THE YOUNG ADULT MEAN.
--- NOTE | 2023-02-01 20:33 | MM ---
Reason for Exam: Screening (asymptomatic). Last mammogram was performed 1 year(s) and 2 month(s) ago. Patient History: Menarche at age 13. Patient has no children. Postmenopausal. Patient used Hormonal Contraceptives for 2 years. Risk Values: Anjana 5 year model risk: 1.9%. NCI Lifetime model risk: 5.4%. Prior Study Comparison: 09/10/2019 Bilateral Screening Mammogram, [facility]. 09/11/2020 Bilateral Screening Mammogram, [facility]. 12/17/2021 Bilateral MG 3D screening mammo w/cad, [facility]. Tissue Density: The breast tissue is heterogeneously dense. This may lower the sensitivity of mammography. Findings: Analyzed By CAD. Unchanged areas of bilateral asymmetric densities. There is no suspicious group of microcalcifications or new suspicious mass in either breast. Overall Assessment: Benign, BI-RAD 2 Management: Screening Mammogram of both breasts in 1 year. . Patient should continue monthly self-breast exams. A clinical breast exam by your physician is recommended on an annual basis. This exam should not preclude additional follow-up of suspicious palpable abnormalities. Note on Anjana scores and lifetime risk: 1. A Anjana score greater than 3% is considered moderate risk. If this is the case, consider specialist referral to assess eligibility for a risk reducing agent. 2. If overall lifetime risk for the development of breast cancer is 20% or higher, the patient may qualify for future screening with alternating mammogram and breast MRI. Electronically signed and approved by: Eleanor Quintanilla M.D. Radiologist
== END | disposition home or self-care (01) ==
LOC: RADBDWWP 10:56
PROVIDERS: ATTEND Family Medicine
DX: Z12.31 Encounter for screening mammogram for malignant neoplasm of breast (principal); M81.0 Age-related osteoporosis without current pathological fracture; M85.89 Other specified disorders of bone density and structure, multiple sites; Z79.899 Other long term (current) drug therapy; Z78.0 Asymptomatic menopausal state; Z92.0 Personal history of contraception
CPT/HCPCS: 77063; 77067; 77080

== ENCOUNTER → 2024-01-02 | Outpatient (CLI) | payer MEDICARE, BC | END | disposition home or self-care (01) | LOC: RADUSWWP 16:08 | PROVIDERS: ATTEND Family Medicine | DX: N81.89 Other female genital prolapse (principal); R10.2 Pelvic and perineal pain | CPT/HCPCS: 76856 ==

== ENCOUNTER → 2024-02-02 | Outpatient (CLI) | payer MEDICARE, BC ==
--- NOTE | 2024-02-02 15:40 | BD ---
EXAMINATION TYPE: Axial Bone Density DATE OF EXAM: 02/02/2024 CLINICAL HISTORY: 73 years old Female. ICD-10 CODE: Z79.899 HALFWAY DRUG USE M81.0 , Additional Hi story: Height: 63 Weight: 160 FRAX RISK QUESTIONS: Family History (Parent hip fracture): no History of Fracture in Adulthood: yes Secondary Osteoporosis: no RISK FACTORS HISTORY OF: Surgery to Spine/Hip(right/left)/Wrist (right/left): no MEDICATIONS: Thyroid Medications: yes Which medication: Levothyroxine How Lon+ years Osteoporosis Medications: yes Which medication: Other How Lon years EXAM MEASUREMENTS: Bone mineral densitometry was performed using the [employer] System. Bone mineral density as measured about the Lumbar spine is: ----- L1-L4(G/cm2): 1.092 T Score Values are as follows: ----- L1: -1.4 ----- L2: -1.5 ----- L3: -0.9 ----- L4: 0.1 ----- L1-L4: -0.7 Z Score Values are as follows: ----- L1: 0.1 ----- L2: 0.0 ----- L3: 0.6 ----- L4: 1.5 ----- L1-L4: 0.7 Bone mineral density has: Increased 1.1% since study of: 01/31/2023 Bone mineral density about the R hip (g/cm2): 0.726 Bone mineral density about the L hip (g/cm2): 0.691 T Score values are as follows: -----R Neck: -2.8 -----L Neck: -2.6 -----R Total: -2.2 -----L Total: -2.5 Z Score values are as follows: -----R Neck: -1.1 -----L Neck: -0.9 -----R Total: -0.8 -----L Total: -1.1 Bone mineral density has: Decreased -2.3% since study of: 01/31/2023 FRAX%s: The graph provided illustrates a 26.7% chance for a major osteoporotic fx and a 8.4% chance f or the hips probability for fx in 10 years time. IMPRESSION: Osteoporosis (T Score less than -2.5). There is increased fracture risk and therapy is usually indicated based on age. Re-Screen 1-2 years. NOTE: T-SCORE=SD OF THE YOUNG ADULT MEAN. [facility], Workstation: 3, 02/02/2024 3:38 PM
--- NOTE | 2024-02-06 13:26 | MM ---
Reason for Exam: Screening (asymptomatic). Last screening mammogram was performed 12 month(s) ago. Patient History: Menarche at age 13. Patient has no children. Postmenopausal. Patient used Hormonal Contraceptives for 2 years. Risk Values: Anjana 5 year model risk: 2.0%. NCI Lifetime model risk: 5.1%. Prior Study Comparison: 09/11/2020 Bilateral Screening Mammogram, [facility]. 12/17/2021 Bilateral MG 3D screening mammo w/cad, [facility]. 01/31/2023 Bilateral MG 3D screening mammo w/cad, [facility]. Tissue Density: The breasts are heterogeneously dense, which may obscure small masses. Findings: Analyzed By CAD. Right breast: There is no suspicious group of microcalcifications or new suspicious mass. Benign-appearing calcifications right breast. Left breast: There is no suspicious group of microcalcifications or new suspicious mass. Benign-appearing calcifications left breast. Overall Assessment: Benign, BI-RAD 2 Management: Screening Mammogram of both breasts in [address] [facility] will attempt to contact patient to return for supplemental views and ultrasound if indicated. Patient should continue monthly self-breast exams. A clinical breast exam by your physician is recommended on an annual basis. This exam should not preclude additional follow-up of suspicious palpable abnormalities. Note on Anjana scores and lifetime risk: 1. A Anjana score greater than 3% is considered moderate risk. If this is the case, consider specialist referral to assess eligibility for a risk reducing agent. 2. If overall lifetime risk for the development of breast cancer is 20% or higher, the patient may qualify for future screening with alternating mammogram and breast MRI. [facility], , 02/06/2024 1:24 PM. Electronically signed and approved by: Isra José DO
== END | disposition home or self-care (01) ==
LOC: RADMAMWWP 10:36
PROVIDERS: ATTEND Family Medicine
DX: Z12.31 Encounter for screening mammogram for malignant neoplasm of breast (principal); M81.0 Age-related osteoporosis without current pathological fracture; Z79.899 Other long term (current) drug therapy; Z78.0 Asymptomatic menopausal state; R92.333 Mammographic heterogeneous density, bilateral breasts
CPT/HCPCS: 77063; 77067; 77080